=== PATIENT | male | born 1990 | race Caucasian/White ===

== ENCOUNTER 2016-05-15 16:08 | Emergency (ER) | payer OTHER ==
[2016-05-15 16:35] VITALS: BP 116/76; PULSE 59; TEMP 98.1; BMI 27.1
[2016-05-15] MEDS ORDERED: PIPERACILLIN/TAZOB 3.375 GM 3.375 GM in DEXTROSE 5%-WATER - 50 ML IVPB ONE (16:56)
[2016-05-15] MEDS ORDERED: VANCOMYCIN 1,000 MG in DEXTROSE 5%-WATER - 250 ML IVPB ONE (16:56)
[2016-05-15] MEDS ORDERED: PIPERACILLIN/TAZOB 3.375 GM 50 ML IVPB ONE (17:35)
[2016-05-15] MEDS ORDERED: VANCOMYCIN 1 GRAM (PRE-DOCKED) 250 ML IVPB ONE (17:35)
[2016-05-15 17:47] LABS: BASOPHIL 0.4 % (0-2.0); EOSINOPHIL 0.5 % (0-4.5); MCH 30.5 pg (25.7-33.7); MCHC 34.3 g/dl (32.0-35.9); MEAN CELL VOLUME 88.9 fl (80-96); MEAN PLT VOLUME 8.8 fl (7.5-11.1); NEUTROPHILS 71.9 % (42.8-82.8); PLATELET COUNT 187 K/MM3 (134-434); RDW 13.8 % (11.9-15.9); WHITE BLOOD COUNT 9.5 K/mm3 (4.0-10.0)
[2016-05-15 18:04] LABS: INR 1.17 (0.82-1.09); PROTHROMBIN TIME (PATIENT) 12.9 SEC (9.98-11.88)
--- NOTE | 2016-05-15 18:06 | PDOC ---
History of Present Illness <Jeffrey Diez - Last Filed: 05/15/16 18:05> - General History Source: Patient Exam Limitations: No Limitations - History of Present Illness Initial Comments: 05/15/16 18:24 The patient is a 25 year old male with no significant past medical history who presents to the ED complaining of 3 days of progressively worsening swelling to his left upper lip with mild associated pain. He states he noticed either a pimple or ingrown hair which he picked at and subsequently developed his swelling. He was seen at an Urgent Care facility around noon today where he received both Keflex and Bactrim. Around 3 PM, he thought his swelling began extending up his cheek, prompting him to come to the ED for further evaluation. The patient denies fever, chills, nausea, or vomiting. <Laura Mitchell - Last Filed: 05/15/16 18:24> <Martha Mancini - Last Filed: 05/15/16 20:52> - General Chief Complaint: Abscess Boil Stated Complaint: INFECTED LIP Time Seen by Provider: 05/15/16 16:28 Past History - Past Medical History Other medical history: PT DENIES MEDICAL HX - Psycho/Social/Smoking Cessation Hx Suicidal Ideation: No Smoking History: Never smoked Hx Alcohol Use: No Drug/Substance Use Hx: No <Jeffrey Diez - Last Filed: 05/15/16 18:05> <Laura Mitchell - Last Filed: 05/15/16 18:24> <Martha Mancini - Last Filed: 05/15/16 20:52> - Past Medical History Allergies/Adverse Reactions: Allergies Allergy/AdvReac Type Severity Reaction Status Date / Time No Known Allergies Allergy Verified 05/15/16 16:35 Home Medications: Ambulatory Orders Cephalexin [Keflex] 500 mg PO DAILY 05/15/16 Sulfamethoxazole/Trimethoprim [Bactrim Ds -] 1 tab PO BID 05/15/16 Review of Systems - Review of Systems Able to Perform ROS?: Yes Comments:: 05/15/16 18:27 GENERAL/CONSTITUTIONAL: No fever or chills. No weakness. HEAD, EYES, EARS, NOSE AND THROAT: No change in vision. No ear pain or discharge. No sore throat CARDIOVASCULAR: No chest pain or shortness of breath. RESPIRATORY: No cough, wheezing, or hemoptysis. GASTROINTESTINAL: No nausea, vomiting, diarrhea or constipation. GENITOURINARY: No dysuria, frequency, or change in urination. MUSCULOSKELETAL: No joint or muscle swelling or pain. No neck or back pain. SKIN: Swelling to left upper lip with pain and swelling. NEUROLOGIC: No headache, vertigo, loss of consciousness, or change in strength/ sensation. ENDOCRINE: No increased thirst. No abnormal weight change. HEMATOLOGIC/LYMPHATIC: No anemia, easy bleeding, or history of blood clots. ALLERGIC/IMMUNOLOGIC: No hives or skin allergy. <Laura Mitchell - Last Filed: 05/15/16 18:24> *Physical Exam - Vital Signs Last Vital Signs Temp Pulse Resp BP Pulse Ox 98.1 F 59 L 18 116/76 97 05/15/16 16:33 05/15/16 16:33 05/15/16 16:33 05/15/16 16:33 05/15/16 16:33 <Jeffrey Diez - Last Filed: 05/15/16 18:05> - Vital Signs Last Vital Signs Temp Pulse Resp BP Pulse Ox 98.1 F 59 L 18 116/76 97 05/15/16 16:33 05/15/16 16:33 05/15/16 16:33 05/15/16 16:33 05/15/16 16:33 - Physical Exam Comments: 05/15/16 18:29 GENERAL: Awake, alert, and fully oriented, in no acute distress HEAD: No signs of trauma EYES: PERRLA, EOMI, sclera anicteric, conjunctiva clear ENT: Auricles normal inspection, hearing grossly normal, nares patent, oropharynx clear without exudates. Moist mucosa NECK: Normal ROM, supple, no lymphadenopathy, JVD, or masses LUNGS: Breath sounds equal, clear to auscultation bilaterally. No wheezes, and no crackles NEUROLOGICAL: Cranial nerves II through XII grossly intact. Normal speech, normal gait SKIN: Abscess to left upper lip. No swelling, tenderness, or erythema appreciated above the nasolabial fold. Warm, Dry, normal turgor, no rashes noted. <Laura Mitchell - Last Filed: 05/15/16 18:24> - Vital Signs Last Vital Signs Temp Pulse Resp BP Pulse Ox 98.1 F 59 L 18 116/76 97 05/15/16 16:33 05/15/16 16:33 05/15/16 16:33 05/15/16 16:33 05/15/16 16:33 <Martha Mancini - Last Filed: 05/15/16 20:52> ED Treatment Course - LABORATORY CBC & Chemistry Diagram: 05/15/16 17:17 05/15/16 17:17 - ADDITIONAL ORDERS Additional order review: 05/15/16 17:17 RBC 4.94 MCV 88.9 MCHC 34.3 RDW 13.8 MPV 8.8 Neutrophils % 71.9 Lymphocytes % 17.7 Monocytes % 9.5 Eosinophils % 0.5 Basophils % 0.4 - RADIOLOGY Radiology Studies Ordered: Category Date Time Status FACIAL BONES CT WITH CONTRAST [CT] Stat CT Scan 05/15/16 16:51 Ordered - Medications Given in the ED: ED Medications Discontinued Medications Generic Name Dose Route Start Last Admin Trade Name Freq PRN Reason Stop Dose Admin Vancomycin HCl 1,000 mg/ 250 mls @ 250 mls/hr 05/15/16 16:56 05/15/16 17:38 Dextrose IVPB 05/15/16 17:55 250 mls/hr ONCE ONE Administration Protocol <Jeffrey Diez - Last Filed: 05/15/16 18:05> - LABORATORY CBC & Chemistry Diagram: 05/15/16 17:17 05/15/16 17:17 - ADDITIONAL ORDERS Additional order review: Laboratory Results 05/15/16 05/15/16 17:17 17:17 INR 1.17 H Sodium 141 Potassium 3.9 Chloride 101 Carbon Dioxide 31 Anion Gap 9 BUN 14 Creatinine 1.2 Creat Clearance w eGFR > 60 Random Glucose 90 Calcium 9.0 Total Bilirubin 0.4 AST 22 ALT 26 Alkaline Phosphatase 61 Total Protein 7.6 Albumin 4.3 05/15/16 17:17 RBC 4.94 MCV 88.9 MCHC 34.3 RDW 13.8 MPV 8.8 Neutrophils % 71.9 Lymphocytes % 17.7 Monocytes % 9.5 Eosinophils % 0.5 Basophils % 0.4 - Medications Given in the ED: ED Medications Discontinued Medications Generic Name Dose Route Start Last Admin Trade Name Freq PRN Reason Stop Dose Admin Vancomycin HCl 1,000 mg/ 250 mls @ 250 mls/hr 05/15/16 16:56 05/15/16 17:38 Dextrose IVPB 05/15/16 17:55 250 mls/hr ONCE ONE Administration Protocol <Laura Mitchell - Last Filed: 05/15/16 18:24> - LABORATORY CBC & Chemistry Diagram: 05/15/16 17:17 05/15/16 17:17 - ADDITIONAL ORDERS Additional order review: Laboratory Results 05/15/16 05/15/16 17:17 17:17 INR 1.17 H Sodium 141 Potassium 3.9 Chloride 101 Carbon Dioxide 31 Anion Gap 9 BUN 14 Creatinine 1.2 Creat Clearance w eGFR > 60 Random Glucose 90 Calcium 9.0 Total Bilirubin 0.4 AST 22 ALT 26 Alkaline Phosphatase 61 Total Protein 7.6 Albumin 4.3 05/15/16 17:17 RBC 4.94 MCV 88.9 MCHC 34.3 RDW 13.8 MPV 8.8 Neutrophils % 71.9 Lymphocytes % 17.7 Monocytes % 9.5 Eosinophils % 0.5 Basophils % 0.4 - Medications Given in the ED: ED Medications Discontinued Medications Generic Name Dose Route Start Last Admin Trade Name Freq PRN Reason Stop Dose Admin Vancomycin HCl 1,000 mg/ 250 mls @ 250 mls/hr 05/15/16 16:56 05/15/16 17:38 Dextrose IVPB 05/15/16 17:55 250 mls/hr ONCE ONE Administration Protocol Piperacillin Sod/Tazobactam 50 mls @ 100 mls/hr 05/15/16 16:56 05/15/16 19:31 Sod 3.375 gm/ Dextrose IVPB 05/15/16 17:25 100 mls/hr ONCE ONE Administration Protocol <Martha Mancini - Last Filed: 05/15/16 20:52> *DC/Admit/Observation/Transfer - Attestations Physician Attestion: 05/15/16 18:06 I, Dr. Jeffrey Diez, attest that this document has been prepared under my direction and personally reviewed by me in its entirety. I further attest, that it accurately reflects all work, treatment, procedures and medical decision -making performed by me. <Jeffrey Diez - Last Filed: 05/15/16 18:05> - Attestations Scribe Attestion: 05/15/16 18:36 Documentation prepared by Laura Mitchell, acting as medical services manager for Jeffrey Diez DO. <Laura Mitchell - Last Filed: 05/15/16 18:24> <Martha Mancini - Last Filed: 05/15/16 20:52> Diagnosis at time of Disposition: Abscess of lip - Discharge Dispostion Disposition: HOME Condition at time of disposition: Stable - Patient Instructions Printed Discharge Instructions: DI for Incision and Drainage of a Skin Abscess , DI for Skin Abscess Additional Instructions: please take your antibiotics take tylenol or motrin for pain return if you develop fever or worsening pain
[2016-05-15 18:11] LABS: ALBUMIN 4.3 g/dl (3.4-5.0); ANION GAP 9 (8-16); BILIRUBIN,TOTAL 0.4 mg/dL (0.2-1.0); CO2 31 mmol/L (21-32); CREATININE 1.2 mg/dL (0.7-1.3); GLUCOSE,RANDOM 90 mg/dL (74-106); SGOT/AST 22 U/L (15-37); SGPT/ALT 26 U/L (12-78); TOT PROT 7.6 g/dl (6.4-8.2)
[2016-05-15 18:12] LABS: ALK PHOS 61 U/L (45-117)
--- NOTE | 2016-05-15 18:55 | PDOC ---
*Physical Exam - Vital Signs Last Vital Signs Temp Pulse Resp BP Pulse Ox 98.1 F 59 L 18 116/76 97 05/15/16 16:33 05/15/16 16:33 05/15/16 16:33 05/15/16 16:33 05/15/16 16:33 ED Treatment Course - LABORATORY CBC & Chemistry Diagram: 05/15/16 17:17 05/15/16 17:17 - ADDITIONAL ORDERS Additional order review: Laboratory Results 05/15/16 05/15/16 17:17 17:17 INR 1.17 H Sodium 141 Potassium 3.9 Chloride 101 Carbon Dioxide 31 Anion Gap 9 BUN 14 Creatinine 1.2 Creat Clearance w eGFR > 60 Random Glucose 90 Calcium 9.0 Total Bilirubin 0.4 AST 22 ALT 26 Alkaline Phosphatase 61 Total Protein 7.6 Albumin 4.3 05/15/16 17:17 RBC 4.94 MCV 88.9 MCHC 34.3 RDW 13.8 MPV 8.8 Neutrophils % 71.9 Lymphocytes % 17.7 Monocytes % 9.5 Eosinophils % 0.5 Basophils % 0.4 - Medications Given in the ED: ED Medications Discontinued Medications Generic Name Dose Route Start Last Admin Trade Name Freq PRN Reason Stop Dose Admin Vancomycin HCl 1,000 mg/ 250 mls @ 250 mls/hr 05/15/16 16:56 05/15/16 17:38 Dextrose IVPB 05/15/16 17:55 250 mls/hr ONCE ONE Administration Protocol *DC/Admit/Observation/Transfer Diagnosis at time of Disposition: Abscess, lip - Discharge Dispostion Disposition: HOME Condition at time of disposition: Stable - Patient Instructions Printed Discharge Instructions: DI for Incision and Drainage of a Skin Abscess , DI for Skin Abscess Additional Instructions: please take your antibiotics take tylenol or motrin for pain return if you develop fever or worsening pain Procedures - Incision and Drainage I&D Site: Right: Other (lip) Betadine cleansed: Yes Anesthesia: 1% Lidocaine w/ Epi Volume(ml): 1 (aspirate abscess) Complications: none Progress: 05/15/16 20:38 purulence obtained
[2016-05-15] MEDS ORDERED: LIDOCAINE 1%/EPI 1:100000 (50 ML MULTI DOSE VIAL) ONE (20:12)
== END 2016-05-15 21:04 | disposition home or self-care (01) ==
LOC: JER 16:08
DX: K13.0 Diseases of lips (principal)
CPT/HCPCS: 36415; 70487-TC; 80053; 85025; 85610; 99283-25